=== PATIENT | female | born 1945 | race Caucasian/White ===

== ENCOUNTER → 2018-10-05 | Outpatient (CLI) | payer MEDICARE, OTHER ==
--- NOTE | 2018-10-05 13:57 | Diagnostic Imaging Report ---
Indication: Bilateral knee pain. Time of exam: 1:44 PM Multiple views of bilateral knees were obtained. Alignment is normal. Joint spaces are well maintained. Articular surfaces are smooth. No fracture, dislocation or effusion is seen. There is minimal spurring of the tibial spines. Impression: Mild degenerative changes. No acute bony abnormality is detected. Dictated by: Dictated on workstation # [id number]
== END ==
LOC: RAD FS 13:39
PROVIDERS: ATTEND Family Medicine
DX: M17.0 Bilateral primary osteoarthritis of knee (principal)

== ENCOUNTER 2019-03-07 01:17 | Emergency (ER) | payer MEDICARE, OTHER ==
[~2019-03-07] VITALS: Ht 162.6 cm; Wt 81.6 kg
[2019-03-07] MEDS ORDERED: ASPIRIN 81 MG CHEW (CHILDREN'S ASA) PO ONE (01:30)
[2019-03-07] MEDS: NITROGLYCERIN 0.4 MG SL TABS BTL 25'S SL PRN ×2 (01:47→04:27)
[2019-03-07 01:53] LABS: HEMATOCRIT 42 % (35-52); HEMOGLOBIN 13.9 G/DL (11.5-16.0); MEAN CORPUSCULAR HEMOGLOBIN 31 PG (25-34); MEAN CORPUSCULAR VOLUME 92 FL (80-99); WHITE BLOOD COUNT 10.6 10^3/uL (4.3-11.0)
[2019-03-07 01:54] LABS: BASOPHILS # (AUTO) 0.1 10^3/uL (0.0-0.1); BASOPHILS % (AUTO) 1 % (0-10); EOSINOPHILS # (AUTO) 0.3 10^3/uL (0.0-0.3); EOSINOPHILS % (AUTO) 3 % (0-10); LYMPHOCYTES # (AUTO) 2.3 X 10^3 (1.0-4.0); LYMPHOCYTES % (AUTO) 22 % (12-44); MEAN CORPUSCULAR HGB CONC 33 G/DL (32-36); MEAN PLATELET VOLUME 10.5 FL (7.4-10.4); MONOCYTES # (AUTO) 1.1 X 10^3 (0.0-1.0); MONOCYTES % (AUTO) 10 % (0-12); NEUTROPHILS # (AUTO) 6.8 X 10^3 (1.8-7.8); NEUTROPHILS % (AUTO) 64 % (42-75); PLATELET COUNT 279 10^3/uL (130-400); RED CELL DISTRIBUTION WIDTH 13.2 % (10.0-14.5)
[2019-03-07 02:06] LABS: ALBUMIN 4.5 GM/DL (3.2-4.5); BILIRUBIN,TOTAL 0.3 MG/DL (0.1-1.0); CALCIUM 9.4 MG/DL (8.5-10.1); CREATININE SERUM 0.95 MG/DL (0.60-1.30); MAGNESIUM 2.2 MG/DL (1.6-2.4); POTASSIUM 3.8 MMOL/L (3.6-5.0); TOTAL PROTEIN 7.8 GM/DL (6.4-8.2)
[2019-03-07 02:23] LABS: INR 0.9 (0.8-1.4)
--- NOTE | 2019-03-07 02:26 | ED Chest Pain ---
General Chief Complaint: Chest Pain Stated Complaint: SOB; CHEST PAIN Source: patient Exam Limitations: no limitations (ADA MENDES MD) History of Present Illness Date Seen by Provider: Mar 07, 2019 Time Seen by Provider: 01:21 Initial Comments Here with report of 24 hours of intermittent chest pressure. Started the night before and then better but then through the day yesterday it worsened until early this morning when she presented for evaluation secondary to chest pressure and some shortness of breath. Does have cardiac history with previous heart stents. Significant cardiac history in the family. Denies nausea, vomiting or diaphoresis. 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 NTG SL BIOFUELS MANAGER: No Associated Symptoms: No abdominal pain, No back pain, No diaphoresis, No nausea/vomiting; shortness of breath; No weakness (DAA MENDES MD) Allergies and Home Medications Allergies Coded Allergies: No Known Drug Allergies (Unverified , 03/07/19) Patient Home Medication List Home Medication List Reviewed: Yes (ADA MENDES MD) Review of Systems Review of Systems Constitutional: no symptoms reported EENTM: No Symptoms Reported Respiratory: See HPI, Shortness of Air Cardiovascular: See HPI, Chest Pain Gastrointestinal: Denies Diarrhea, Denies Nausea, Denies Vomiting Genitourinary: No Symptoms Reported Musculoskeletal: no symptoms reported Skin: no symptoms reported Psychiatric/Neurological: No Symptoms Reported Endocrine: No Symptoms Reported Hematologic/Lymphatic: No Symptoms Reported (OMAR LEW MD) Past Suczbbu-Ojsfme-Mgxlbc Hx Past Med/Social Hx: Reviewed Nursing Past Med/Soc Hx (ADA MENDES MD) Past Medical History Surgeries: Yes CABG, Coronary Stent, Oophorectomy, Tonsillectomy Respiratory: No Cardiac: Yes Coronary Artery Disease, High Cholesterol, Hypertension Neurological: No Genitourinary: No Musculoskeletal: No (ADA MENDES MD) Family Medical History Reviewed Nursing Family Hx (ADA MENDES MD) Heart Disease (ADA MENDES MD) Physical Exam Vital Signs Vital Signs - First Documented 03/07/19 01:50 Temp 97.0 Pulse 69 Resp 18 B/P (MAP) 170/64 (99) Pulse Ox 97 O2 Delivery Room Air (OMAR LEW MD) Vital Signs Capillary Refill : (ADA MENDES MD) Height, Weight, BMI Height: '" Weight: lbs. oz. kg; BMI Method: General Appearance: WD/WN, Mild Distress HEENT: PERRL/EOMI, Pharynx Normal Neck: Non Tender, Supple Respiratory: Lungs Clear, Normal Breath Sounds Cardiovascular: Regular Rate, Rhythm, No Murmur Gastrointestinal: Non Tender, Soft Extremity: Normal Range of Motion, Non Tender Neurologic/Psychiatric: Alert, Oriented x3 Skin: Normal Color, Warm/Dry (ADA MENDES MD) Progress/Results/Core Measures Results/Orders Lab Results Laboratory Tests Test 03/07/19 01:27 03/07/19 03:16 Range/Units White Blood Count 10.6 4.3-11.0 10^3/uL Red Blood Count 4.55 4.35-5.85 10^6/uL Hemoglobin 13.9 11.5-16.0 G/DL Hematocrit 42 35-52 % Mean Corpuscular Volume 92 80-99 FL Mean Corpuscular Hemoglobin 31 25-34 PG Mean Corpuscular Hemoglobin Concent 33 32-36 G/DL Red Cell Distribution Width 13.2 10.0-14.5 % Platelet Count 279 130-400 10^3/uL Mean Platelet Volume 10.5 H 7.4-10.4 FL Neutrophils (%) (Auto) 64 42-75 % Lymphocytes (%) (Auto) 22 12-44 % Monocytes (%) (Auto) 10 0-12 % Eosinophils (%) (Auto) 3 0-10 % Basophils (%) (Auto) 1 0-10 % Neutrophils # (Auto) 6.8 1.8-7.8 X 10^3 Lymphocytes # (Auto) 2.3 1.0-4.0 X 10^3 Monocytes # (Auto) 1.1 H 0.0-1.0 X 10^3 Eosinophils # (Auto) 0.3 0.0-0.3 10^3/uL Basophils # (Auto) 0.1 0.0-0.1 10^3/uL Prothrombin Time 13.0 12.2-14.7 SEC INR Comment 0.9 0.8-1.4 Activated Partial Thromboplast Time 29 24-35 SEC Sodium Level 136 135-145 MMOL/L Potassium Level 3.8 3.6-5.0 MMOL/L Chloride Level 97 L 98-107 MMOL/L Carbon Dioxide Level 26 21-32 MMOL/L Anion Gap 13 5-14 MMOL/L Blood Urea Nitrogen 16 7-18 MG/DL Creatinine 0.95 0.60-1.30 MG/DL Estimat Glomerular Filtration Rate 58 BUN/Creatinine Ratio 17 Glucose Level 119 H 70-105 MG/DL Calcium Level 9.4 8.5-10.1 MG/DL Corrected Calcium 9.0 8.5-10.1 MG/DL Magnesium Level 2.2 1.6-2.4 MG/DL Total Bilirubin 0.3 0.1-1.0 MG/DL Aspartate Amino Transf (AST/SGOT) 50 H 5-34 U/L Alanine Aminotransferase (ALT/SGPT) 32 0-55 U/L Alkaline Phosphatase 82 40-136 U/L Myoglobin 46.1 10.0-92.0 NG/ML Troponin I < 0.30 <0.30 NG/ML Total Protein 7.8 6.4-8.2 GM/DL Albumin 4.5 3.2-4.5 GM/DL Pro-B-Type Natriuretic Peptide 3135.0 H <75.0 PG/ML (OMAR LEW MD) Medications Given in ED Current Medications Medications Dose Ordered Sig/Santos Route Start Time Stop Time Status Last Admin Dose Admin Aspirin 324 mg ONCE ONCE PO 03/07/19 01:30 03/07/19 01:31 DC 03/07/19 01:47 324 MG Enoxaparin Sodium 90 mg ONCE ONCE SC 03/07/19 04:30 03/07/19 04:31 DC 03/07/19 04:30 90 MG Nitroglycerin 0.4 mg UD PRN SL 03/07/19 01:30 03/07/19 04:27 0.4 MG Nitroglycerin 1 inch ONCE ONCE TOP 03/07/19 04:00 03/07/19 04:01 DC 03/07/19 04:28 1 INCH (OMAR LEW MD) Vital Signs/I&O 03/07/19 01:50 Temp 97.0 Pulse 69 Resp 18 B/P (MAP) 170/64 (99) Pulse Ox 97 O2 Delivery Room Air (OMAR LEW MD) Progress Progress Note : Progress Note Seen and evaluated. IV, labs, EKG and chest x-ray ordered. ASA 324 mg by mouth ordered. Nitroglycerin sublingual ordered. Monitor patient. Nitroglycerin did seemingly help out her pressure. Chest x-ray did show fairly moderate bilateral vascular congestion. I did discuss with the patient regarding heart failure and she states that she has no history of that. She does have history CABG in 1968 with stenting of the vessels and 2008 and failure of the stent in 2009 requiring repeat CABG. She states that she did have some A. fib during that event but then it cleared up after the CABG. Given her history and the chest x-ray findings I have added BNP. 0400: BNP is grossly elevated. Lasix 40 mg IV and nitro paste 1 inch to chest wall ordered. Her pigs feet finisher is in only there. We have no ICU beds available currently. We will initiate transfer. Her pigs feet finisher is in [place], [place]. 0415: I did discuss the case with Kasey Shea APRN. She accepts patient in transfer for Dr. Brady. We will initiate transfer proceedings when room number is assigned. 0440: Bed number Jung has been given. We are currently working on transfer. Patient is resting peacefully without distress. Blood pressure 123/105 with heart rate 55-62. No chest pain currently. Lovenox 90 mg subcutaneous given. Monitor patient. (ADA MENDES MD) Progress Note : Time: 06:00 Progress Note I assumed care from Dr. MENDES at 6 a.m. I visited with the patient and her . She is symptomatically significantly improved with the IV Lasix and the topical nitroglycerin. Her ventricular response is approximately 60. Supplemental oxygen was applied. We're awaiting EMS transport to [place] at this time. 8:23 am Patient is ready for transfer to [place] with EMS, who should be arriving shortly. (OMAR LEW MD) Initial ECG Impression Date: Mar 07, 2019 Initial ECG Impression Time: 01:32 Initial ECG Rate: 73 Initial ECG Rhythm: Normal Sinus Initial ECG Comparisson: No Previous ECG Available Comment Atrial fibrillation with normal axis. No evidence of ST elevation CA. No previous elbow for comparison. Interpreted by me. (ADA MENDES MD) Diagnostic Imaging Diagonstic Imaging: Xray Plain Films/CT/US/NM/MRI: chest Comments Bilateral pulmonary vascular congestion. (ADA MENDES MD) Departure Impression Primary Impression: Acute heart failure Qualified Codes: I50.9 - Heart failure, unspecified Additional Impression: Atrial fibrillation Qualified Codes: I48.91 - Unspecified atrial fibrillation Disposition: XFER SHT-TRM HOSP Condition: Improved Transfer Time Spoke to Accepting Phy: 04:15 Transfer Facility: [place], [place], Dr. Brady accepting. Method of Transfer: EMS (ADA MENDES MD) Departure-Patient Inst. Referrals: GERSON DOUGHERTY MD (PCP/Family) Primary Care Physician ADA MENDES MD Mar 07, 2019 02:26 OMAR LWE MD Mar 07, 2019 07:01
[2019-03-07] MEDS ORDERED: FUROSEMIDE 40 MG/4 ML INJ (LASIX) IV STA (03:58)
[2019-03-07] MEDS ORDERED: NITROGLYCERIN 2% OINT 1 GM UNIT DOSE PACKET TOP ONE (04:00)
[2019-03-07] MEDS ORDERED: ENOXAPARIN 100 MG/1 ML (LOVENOX) SYR SC ONE (04:30)
--- NOTE | 2019-03-07 04:55 | NUR ---
[facility] EXPECTED TO COME GET PT BETWEEN 0830 AND 0900 TODAY TO TAKE PT TO [facility]
--- NOTE | 2019-03-07 08:46 | Diagnostic Imaging Report ---
INDICATION: Chest pain. Shortness of breath. No focal infiltrates are seen. No effusions. No pneumothorax. Sternotomy wires noted. IMPRESSION: Findings of pulmonary edema. Dictated by: Dictated on workstation # [id number]
[2019-03-07 09:02] VITALS: BP 128/69
== END 2019-03-07 09:02 | disposition short-term general hospital (02) ==
LOC: EDUNIT# 01:17 → ER FS 01:18
DX: I11.0 Hypertensive heart disease with heart failure (principal); I50.9 Heart failure, unspecified; I48.91 Unspecified atrial fibrillation; E78.00 Pure hypercholesterolemia, unspecified; I25.10 Atherosclerotic heart disease of native coronary artery without angina pectoris; Z95.5 Presence of coronary angioplasty implant and graft; Z95.1 Presence of aortocoronary bypass graft; Z90.89 Acquired absence of other organs; Z82.49 Family history of ischemic heart disease and other diseases of the circulatory system
CPT/HCPCS: 36415; 71045; 80053; 83735; 83874; 83880; 84484; 85025; 85610; 85730; 93005; 93041

== ENCOUNTER → 2019-07-19 | Outpatient (CLI) | payer MEDICARE, OTHER ==
--- NOTE | 2019-07-19 15:56 | Diagnostic Imaging Report ---
INDICATION: Bilateral knee pain. TIME OF EXAM: 02:18 p.m. FINDINGS: Multiple views of bilateral knees were obtained. Alignment is normal. Joint spaces are fairly well maintained. The articular surfaces are smooth. No acute fracture, dislocation, or effusion is seen. There is a small corticated osseous density projected between the tibial spines of the left knee on the oblique view measuring 3 mm. A small loose body cannot be entirely excluded. No other significant abnormalities are seen. IMPRESSION: Questionable loose body left knee, as described. No other abnormalities are seen. No acute fracture or dislocation is seen. Dictated by: Dictated on workstation # [id number]
== END ==
LOC: RAD FS 14:12
PROVIDERS: ATTEND Nurse Practitioner
DX: M25.561 Pain in right knee (principal); M25.562 Pain in left knee

== ENCOUNTER 2019-12-11 23:48 | Emergency (ER) | payer MEDICARE, OTHER ==
[~2019-12-11] VITALS: Ht 162 cm; Wt 84.2 kg
--- OUTSIDE RECORDS SUMMARY | 2019-12-11 23:56 | XMS REPORT | Continuity of Care Document ---
Author Organization Unknown Address Unknown Phone Unavailable Allergies Active Description Code Type Severity Reaction Onset Reported/Identified Relationship to Patient Clinical Status Yes No Known Drug Allergies [id number] Drug Allergy Unknown N/A 03/07/2019 Medications There is no data. Problems Date Dx Coded Attending Type Code Diagnosis Diagnosed By 10/08/2018 GERSON DOUGHERTY MD Ot M17.0 BILATERAL PRIMARY OSTEOARTHRITIS OF KNEE 10/30/2018 GERSON DOUGHERTY MD Ot M17.0 BILATERAL PRIMARY OSTEOARTHRITIS OF KNEE 03/07/2019 GERSON DOUGHERTY MD Ot M17.0 BILATERAL PRIMARY OSTEOARTHRITIS OF KNEE 03/07/2019 OMAR LEW MD Ot E78. 00 PURE HYPERCHOLESTEROLEMIA, UNSPECIFIED 03/07/2019 OMAR LEW MD Ot I11. 0 HYPERTENSIVE HEART DISEASE WITH HEART FA 03/07/2019 OMAR LEW MD Ot I25. 10 ATHSCL HEART DISEASE OF [place] CORONARY 03/07/2019 OMAR LEW MD Ot I48. 91 UNSPECIFIED ATRIAL FIBRILLATION 03/07/2019 OMAR LEW MD Ot I50. 9 HEART FAILURE, UNSPECIFIED 03/07/2019 OMAR LEW MD Ot R07. 89 OTHER CHEST PAIN 03/07/2019 OMAR LEW MD Ot Z82. 49 FAMILY HX OF ISCHEM HEART DIS AND OTH DI 03/07/2019 OMAR LEW MD Ot Z90. 89 ACQUIRED ABSENCE OF OTHER ORGANS 03/07/2019 OMAR LEW MD Ot Z95. 1 PRESENCE OF AORTOCORONARY BYPASS GRAFT 03/07/2019 OMAR LEW MD Ot Z95. 5 PRESENCE OF CORONARY ANGIOPLASTY IMPLANT 07/21/2019 LUIS MEDINA Ot M25.561 PAIN IN RIGHT KNEE 07/21/2019 LUIS MEDINA Ot M25.562 PAIN IN LEFT KNEE 07/25/2019 LUIS MEDINA Ot M25.561 PAIN IN RIGHT KNEE 07/25/2019 LUIS MEDINAP Ot M25.562 PAIN IN LEFT KNEE 08/04/2019 LUIS MEDINA Toma ESPINOSA Ot M25.561 PAIN IN RIGHT KNEE 08/04/2019 ADAMLUIS Toma ESPINOSA Ot M25.562 PAIN IN LEFT KNEE Procedures There is no data. Results Test Result Range Complete blood count (CBC) with automate d white blood cell (WBC) differential - 03/07/19 01:27 Blood leukocytes automated count (number/volume) 10.6 10*3/uL 4.3-11.0 Blood erythrocytes automated count (number/volume) 4.55 10*6/uL 4.35-5.85 Venous blood hemoglobin measurement (mass/volume) 13.9 g/dL 11.5-16.0 Blood hematocrit (volume fraction) 42 % 35-52 Automated erythrocyte mean corpuscular volume 92 [ foz_us] 80-99 Automated erythrocyte mean corpuscular h emoglobin (mass per erythrocyte) 31 pg 25-34 Automated erythrocyte mean corpuscular h emoglobin concentration measurement (mass/volume) 33 g/dL 32-36 Automated erythrocyte distribution width ratio 13. 2 % 10.0- 14.5 Automated blood platelet count (count/volume) 279 10*3/uL 130-400 Automated blood platelet mean volume measurement 10.5 [foz_us] 7.4-10.4 Automated blood neutrophils/100 leukocytes 64 % 42-75 Automated blood lymphocytes/100 leukocytes 22 % 12-44 Blood monocytes/100 leukocytes 10 % 0-12 Automated blood eosinophils/100 leukocytes 3 % 0-10 Automated blood basophils/100 leukocytes 1 % 0-10 Blood neutrophils automated count (number/volume) 6.8 10*3 1.8-7.8 Blood lymphocytes automated count (number/volume) 2.3 10*3 1.0-4.0 Blood monocytes automated count (number/volume) 1. 1 10*3 0.0-1.0 Automated eosinophil count 0.3 10*3/uL 0 .0-0.3 Automated blood basophil count (count/volume) 0.1 10*3/uL 0.0-0.1 Serum or plasma troponin i.cardiac measu rement (mass/volume) - 03/07/19 01:27 Serum or plasma troponin i.cardiac measurement (mass/v olume) < ng/mL <0.30 Comprehensive metabolic panel - 03/07/19 01:27 Serum or plasma sodium measurement (moles/volume) 136 mmol/L 135-145 Serum or plasma potassium measurement (moles/volume) 3.8 mmol/L 3.6-5.0 Serum or plasma chloride measurement (moles/volume) 97 mmol/L 98-107 Carbon dioxide 26 mmol/L 21-32 Serum or plasma anion gap determination (moles/volume) 13 mmol/L 5-14 Serum or plasma urea nitrogen measurement (mass/volume ) 16 mg/dL 7-18 Serum or plasma creatinine measurement (mass/volume) 0.95 mg/dL 0.60-1.30 Serum or plasma urea nitrogen/creatinine mass ratio 17 NRG Serum or plasma creatinine measurement w ith calculation of estimated glomerular filtration rate 58 NRG Serum or plasma glucose measurement (mass/volume) 119 mg/dL 70-105 Serum or plasma calcium measurement (mass/volume) 9.4 mg/dL 8.5-10.1 Serum or plasma total bilirubin measurement (mass/volu me) 0.3 mg/dL 0.1-1.0 Serum or plasma alkaline phosphatase katelynn surement (enzymatic activity/volume) 82 U/L 40-136 Serum or plasma aspartate aminotransfera se measurement (enzymatic activity/volume) 50 U/L 5-34 Serum or plasma alanine aminotransferase measurement (enzymatic activity/volume) 32 U/L 0-55 Serum or plasma protein measurement (mass/volume) 7.8 g/dL 6.4-8.2 Serum or plasma albumin measurement (mass/volume) 4.5 g/dL 3.2-4.5 CALCIUM CORRECTED 9.0 mg/dL 8.5-10.1 Magnesium - 03/07/19 01:27 Magnesium 2.2 mg/dL 1.6-2.4 PT panel in platelet poor plasma by coag ulation assay - 03/07/19 01:27 Prothrombin time (PT) in platelet poor plasma by coagu lation assay 13.0 s 12.2-14.7 INR in platelet poor plasma or blood by coagulation as say 0.9 0.8-1.4 Activated partial thromboplastin time (a PTT) in platelet poor plasma bycoagulation assay - 03/07/19 01:27 Activated partial thromboplastin time (a PTT) in platelet poor plasma bycoagulation assay 29 s 24-35 Myoglobin, serum - 03/07/19 01:27 Myoglobin, serum 46.1 ng/mL 10.0-92.0 PROBNP FS - 03/07/19 03:16 PROBNP FS 3135.0 pg/mL <75.0 Encounters ACCT No. Visit Date/Time Discharge Status Pt. Type Provider Facility Loc./Unit Complaint [id number] 07/19/2019 14:12:00 020 23:59:59 CLS Outpatient LUIS MEDINA [facility] RAD FS M25.561 [id number] 03/07/2019 01:18:00 019 09:02:00 DIS Emergency VIPIN FAULKNER, OMAR Mejia [facility] ER FS SOB; CHEST PAIN [id number] 10/05/2018 13:39:00 019 23:59:59 CLS Outpatient LADONNA FAULKNER, GERSON Prado [facility] RAD FS M17.0
[2019-12-12] MEDS ORDERED: TRM50T PO (00:38)
--- NOTE | 2019-12-12 00:38 | ED General ---
General Chief Complaint: Head/Cervical Problems Stated Complaint: FELL AND HIT HEAD Nursing Triage Note: Pt states she lost her balance at home and hit her head on a table. Pt denies loc and is alert and oriented on arrival Nursing Sepsis Screen: No Definite Risk Source of Information: Patient History of Present Illness Date Seen by Provider: Dec 12, 2019 Time Seen by Provider: 00:00 Initial Comments Patient is a 74-year-old female currently owns her also for intermittent A. fib presents with persistent headache for several hours after striking her apical central forehead recommend while attempting to sit down. Denies loss of consciousness, change of mental status, nausea vomiting or worsening headache. Patient reports diffuse upper posterior neck pain. Other pain symptoms or complaints. No other acute symptoms at this time. Timing/Duration: 4-6 Hours Severity: Moderate Associated Systoms: Denies Symptoms Allergies and Home Medications Allergies Coded Allergies: No Known Drug Allergies (Unverified , 03/07/19) Patient Home Medication List Home Medication List Reviewed: Yes Review of Systems Review of Systems Constitutional: see HPI EENTM: see HPI Respiratory: see HPI Cardiovascular: see HPI Genitourinary: see HPI Musculoskeletal: see HPI Skin: see HPI Psychiatric/Neurological: See HPI Hematologic/Lymphatic: See HPI Immunological/Allergic: see HPI All Other Systems Reviewed Negative Unless Noted: Yes Past Jbovjvs-Volobf-Ylsshf Hx Past Med/Social Hx: Reviewed Nursing Past Med/Soc Hx Patient Social History Alcohol Use: Denies Use Recreational Drug Use: No Smoking Status: Never a Smoker 2nd Hand Smoke Exposure: No Recent Foreign Travel: No Contact w/Someone Who Travel: No Recent Infectious Disease Expo: No Recent Hopitalizations: No Physical Abuse: No Sexual Abuse: No Past Medical History Surgeries: Yes CABG, Coronary Stent, Oophorectomy, Tonsillectomy Respiratory: No Cardiac: Yes (CHF) Atrial Fibrillation, Coronary Artery Disease, High Cholesterol, Hypertension Neurological: No Genitourinary: No Gastrointestinal: No Musculoskeletal: No Endocrine: No HEENT: No Cancer: No Psychosocial: No Integumentary: No Blood Disorders: No Family Medical History Heart Disease Physical Exam Vital Signs Vital Signs - First Documented 12/11/19 23:54 Temp 36.6 Pulse 85 Resp 18 B/P (MAP) 159/74 (102) Pulse Ox 99 O2 Delivery Room Air Capillary Refill : Less Than 3 Seconds Height, Weight, BMI Height: 5'4.00" Weight: 180lbs. oz. 81.100849de; 32.00 BMI Method:Stated General Appearance: No Apparent Distress, WD/WN, Anxious Eyes: Bilateral Eye Normal Inspection, Bilateral Eye PERRL, Bilateral Eye EOMI HEENT: PERRL/EOMI, Normal ENT Inspection, Pharynx Normal Neck: Non Tender, Supple, Limited Range of Motion, Other Respiratory: Chest Non Tender, Lungs Clear Cardiovascular: Regular Rate, Rhythm (regular rate), No Edema, Other Gastrointestinal: Soft Back: Normal Inspection Neurologic/Psychiatric: Alert, Oriented x3, No Motor/Sensory Deficits Focused Exam Sepsis Stage: Ruled Out Progress/Results/Core Measures Suspected Sepsis Recent Fever Within 48 Hours: No Infection Criteria Present: None New/Unexplained Altered Menta: No Sepsis Screen: No Definite Risk SIRS Temperature: Pulse: 85 Respiratory Rate: 18 Blood Pressure 159 /74 Mean: 102 Results/Orders My Orders Orders - MARTI SWENSON DO Ct Head/Cervical Spine Wo (12/12/19 00:07) Tramadol Tablet (Ultram Tablet) (12/12/19 00:30) Vital Signs/I&O 12/11/19 23:54 Temp 36.6 Pulse 85 Resp 18 B/P (MAP) 159/74 (102) Pulse Ox 99 O2 Delivery Room Air Capillary Refill : Less Than 3 Seconds Blood Pressure Mean: 102 Departure Communication (Admissions) CT head/cervical spine: Impression Primary Impression: Concussion without loss of consciousness Additional Impression: Acute cervical sprain Disposition: 01 HOME, SELF-CARE Condition: Stable Departure-Patient Inst. Referrals: GERSON DOUGHERTY MD (PCP/Family) Primary Care Physician Patient Instructions: Closed Head Injury, Neck Sprain (DC) Add. Discharge Instructions: You were evaluated in the emergency department for head injury and neck pain. CT imaging head and neck were performed and did not show acute intracranial or cervical spine injury. Please take newly Tylenol for pain and tramadol as needed for additional relief. Follow-up with your PCP in 2-3 days for reevaluation if symptoms persist. All discharge instructions reviewed with patient and/or family. Voiced understanding. Scripts Tramadol HCl (Tramadol HCl) 50 Mg Tablet 50 MG PO Q6H PRN for PAIN for 3 Days, #10 TAB 0 Refills Prov: MARTI SWENSON DO 12/12/19 MARTI SWENSON DO Dec 12, 2019 00:38
[2019-12-12 00:44] VITALS: BP 159/74
--- NOTE | 2019-12-12 07:30 | Diagnostic Imaging Report ---
Clinical indication: Patient lost her balance at home and hit her head on the table. Patient denies loss of consciousness. Exam: Head CT without IV contrast with coronal and sagittal reformatted images. Axial CT scan of the cervical spine with sagittal and coronal reformations. Auto Exposure Controls were utilized during the CT exam to meet ALARA standards for radiation dose reduction. Comparison: None. Findings: Head CT: There is no evidence of acute cerebral infarct, intracranial hemorrhage, or gross mass effect. There is diffuse brain parenchymal volume loss. There are subtle patchy areas of low-attenuation white matter changes involving both cerebral hemispheres, likely representing chronic small vessel ischemic disease. There is normal garland-white matter distinction. There is no significant midline shift or herniation. There is no evidence of hydrocephalus. The basal cisterns are unremarkable. The skull, extracranial soft tissue, and orbits are unremarkable. The paranasal sinuses are unremarkable. Temporal bones show no significant abnormality. Cervical spine: There is no acute cervical spine fracture. There is grade 1 anterolisthesis C2 on C3 and C3 on C4 and C4 on C5 with no pars defects seen, and is likely degenerative. There are hypertrophic spurs and facet arthropathy seen throughout cervical spine. There is uncinate spurs and diffuse disk bulges seen at C5-C6 and C6-C7 levels. There is moderate to severe right C5-C6 neural foramen narrowing and moderate left C5-C6 and C6-C7 neural foramen narrowing. There is at least mild to moderate central canal narrowing at the C5-C6 and C6-C7 levels. There is no significant neck soft tissue abnormality. Visualized upper lung abdi show no significant abnormality. Impression: 1: There is no evidence of acute intracranial process. There is no skull fracture. 2: Multilevel cervical spine degenerative disease with no acute fracture. I agree with [employer] report. Dictated by: Dictated on workstation # [id number]
== END 2019-12-12 00:45 | disposition home or self-care (01) ==
LOC: EDUNIT# 23:48 → ER FS 23:52
DX: S06.0X0A Concussion without loss of consciousness, initial encounter (principal); S13.4XXA Sprain of ligaments of cervical spine, initial encounter; I11.0 Hypertensive heart disease with heart failure; I50.9 Heart failure, unspecified; Z95.1 Presence of aortocoronary bypass graft; Z95.5 Presence of coronary angioplasty implant and graft; Z82.49 Family history of ischemic heart disease and other diseases of the circulatory system; W19.XXXA Unspecified fall, initial encounter; W22.8XXA Striking against or struck by other objects, initial encounter; Y92.009 Unspecified place in unspecified non-institutional (private) residence as the place of occurrence of the external cause
CPT/HCPCS: 70450; 72125

== ENCOUNTER 2020-11-08 12:16 | Emergency (ER) | payer MEDICARE, OTHER ==
[~2020-11-08] VITALS: Ht 162.6 cm; Wt 78.0 kg
[~2020-11-08 12:16] MED LIST: TRM50T PO
--- NOTE | 2020-11-08 12:33 | ED Cardiac General ---
History of Present Illness General Chief Complaint: Chest Pain Stated Complaint: SOB; CHEST PAIN History of Present Illness Date Seen by Provider: November 08, 2020 Time Seen by Provider: 12:25 Initial Comments 74-year-old female presents with chest pressure and shortness of air for the past 3 days, intermittently but getting progressively worse today. History of CHF and she takes Lasix once a day, not on home oxygen. Denies any recent illness, fever chills or cough. Denies any swelling of extremities. Allergies and Home Medications Allergies Coded Allergies: No Known Drug Allergies (Unverified , 03/07/19) Home Medications Tramadol HCl 50 Mg Tablet, 50 MG PO Q6H PRN for PAIN Prescribed by: MARTI SWENSON on 12/12/19 0038 Patient Home Medication List Home Medication List Reviewed: Yes Review of Systems Review of Systems Constitutional: No chills, No fever, No malaise, No weakness EENTM: No Symptoms Reported Respiratory: See HPI; Denies Cough; Shortness of Air; Denies Stridor, Denies Wheezing Cardiovascular: See HPI, Chest Pain; Denies Edema, Denies Palpitations, Denies Syncope Gastrointestinal: Denies Abdominal Pain, Denies Nausea, Denies Vomiting Musculoskeletal: No back pain, No joint pain Skin: No change in color, No lesions, No rash Past Plqyemf-Ykqshg-Jabldr Hx Past Med/Social Hx: Reviewed Nursing Past Med/Soc Hx Patient Social History 2nd Hand Smoke Exposure: No Recent Hopitalizations: No Past Medical History Surgeries: Yes CABG, Coronary Stent, Oophorectomy, Tonsillectomy Respiratory: No Cardiac: Yes (CHF) Atrial Fibrillation, Coronary Artery Disease, High Cholesterol, Hypertension Neurological: No Genitourinary: No Gastrointestinal: No Musculoskeletal: No Endocrine: No HEENT: No Cancer: No Psychosocial: No Integumentary: No Blood Disorders: No Family Medical History Heart Disease Physical Exam Vital Signs Vital Signs - First Documented Capillary Refill : Height, Weight, BMI Height: 5'4.00" Weight: 180lbs. oz. [id number]; 32.00 BMI Method:Stated General Appearance: No Apparent Distress, WD/WN Neck: Non Tender, Supple Respiratory: Chest Non Tender, Lungs Clear, Normal Breath Sounds, No Accessory Muscle Use, No Respiratory Distress Cardiovascular: Regular Rate, Rhythm, No Edema, No JVD Gastrointestinal: No Organomegaly, Non Tender, Soft Extremity: Normal Inspection, Non Tender, No Pedal Edema Progress/Results/Core Measures Results/Orders Lab Results Laboratory Tests Test 11/08/20 12:18 Range/Units White Blood Count 9.2 4.3-11.0 10^3/uL Red Blood Count 4.98 4.35-5.85 10^6/uL Hemoglobin 15.4 11.5-16.0 G/DL Hematocrit 46 35-52 % Mean Corpuscular Volume 92 80-99 FL Mean Corpuscular Hemoglobin 31 25-34 PG Mean Corpuscular Hemoglobin Concent 34 32-36 G/DL Red Cell Distribution Width 13.2 10.0-14.5 % Platelet Count 333 130-400 10^3/uL Mean Platelet Volume 10.2 7.4-10.4 FL Immature Granulocyte % (Auto) 0 % Neutrophils (%) (Auto) 59 42-75 % Lymphocytes (%) (Auto) 26 12-44 % Monocytes (%) (Auto) 12 0-12 % Eosinophils (%) (Auto) 2 0-10 % Basophils (%) (Auto) 1 0-10 % Neutrophils # (Auto) 5.5 1.8-7.8 X 10^3 Lymphocytes # (Auto) 2.4 1.0-4.0 X 10^3 Monocytes # (Auto) 1.1 H 0.0-1.0 X 10^3 Eosinophils # (Auto) 0.2 0.0-0.3 10^3/uL Basophils # (Auto) 0.1 0.0-0.1 10^3/uL Immature Granulocyte # (Auto) 0.0 0.0-0.1 10^3/uL D-Dimer < 0.27 0.00-0.49 UG/ML Sodium Level 139 135-145 MMOL/L Potassium Level 4.2 3.6-5.0 MMOL/L Chloride Level 104 98-107 MMOL/L Carbon Dioxide Level 26 21-32 MMOL/L Anion Gap 9 5-14 MMOL/L Blood Urea Nitrogen 14 7-18 MG/DL Creatinine 0.88 0.60-1.30 MG/DL Estimat Glomerular Filtration Rate > 60 BUN/Creatinine Ratio 16 Glucose Level 121 H 70-105 MG/DL Calcium Level 9.8 8.5-10.1 MG/DL Corrected Calcium 8.5-10.1 MG/DL Total Bilirubin 0.6 0.1-1.0 MG/DL Aspartate Amino Transf (AST/SGOT) 28 5-34 U/L Alanine Aminotransferase (ALT/SGPT) 18 0-55 U/L Alkaline Phosphatase 75 40-136 U/L Troponin I < 0.30 <0.30 NG/ML Pro-B-Type Natriuretic Peptide 2944.0 H <75.0 PG/ML Total Protein 8.0 6.4-8.2 GM/DL Albumin 4.6 H 3.2-4.5 GM/DL My Orders Orders - [place] Ed Iv/Invasive Line Start (11/08/20 12:33) Cbc With Automated Diff (11/08/20 12:33) Comprehensive Metabolic Panel (11/08/20 12:33) Troponin I Fs (11/08/20 12:33) Chest 1 View Ap/Pa Only (11/08/20 12:33) Probnp Fs (11/08/20 12:33) Fibrin Degradation Products (11/08/20 12:33) Ekg Tracing (11/08/20 12:35) Vital Signs/I&O 11/08/20 11/08/20 12:16 12:16 Temp 37.1 Pulse 89 Resp 20 B/P (MAP) 140/92 (108) Pulse Ox 99 O2 Delivery Room Air Room Air Initial ECG Impression Date: November 08, 2020 Initial ECG Impression Time: 12:20 Initial ECG Rate: 86 Initial ECG Rhythm: Normal Sinus Initial ECG Comparisson: No Previous ECG Available Comment no acute ischemic change. Old ischemia...inf q waves Diagnostic Imaging Comments Date of Exam:11/08/20 CHEST 1 VIEW AP/PA ONLY PATIENT HISTORY: SOA. TECHNIQUE: Single frontal view of the chest. COMPARISON: 03/07/2019 FINDINGS: The lung volumes are normal. No focal consolidation is seen. No large pleural effusion or pneumothorax is seen. There is mild cardiomegaly which appears stable. Sternotomy wires and post-CABG changes are noted. IMPRESSION: Stable cardiomegaly with no acute pulmonary abnormality seen. Dictated on workstation # [id number] Dict: 11/08/20 1244 Trans: 11/08/20 1247 [facility] [id number] Interpreted by: HOMER BARLOW MD Electronically signed by: Departure Impression Primary Impression: Chest pain Qualified Codes: R07.9 - Chest pain, unspecified Additional Impression: Anxiety Disposition: HOME, SELF-CARE Condition: Improved Departure-Patient Inst. Decision time for Depature: 14:12 Referrals: GERSON DOUGHERTY MD (PCP/Family) Primary Care Physician Patient Instructions: Chest Pain, Adult ED Scripts Clonazepam (Klonopin) 0.5 Mg Tablet 0.5 MG PO DAILY PRN for Anxiety, #10 TAB Prov: VIRGINIA CASTRO DO 11/08/20 VIRGINIA CASTRO DO November 08, 2020 12:33
[2020-11-08 12:43] LABS: HEMATOCRIT 46 % (35-52); HEMOGLOBIN 15.4 G/DL (11.5-16.0); MEAN CORPUSCULAR HEMOGLOBIN 31 PG (25-34); MEAN CORPUSCULAR HGB CONC 34 G/DL (32-36); MEAN CORPUSCULAR VOLUME 92 FL (80-99); WHITE BLOOD COUNT 9.2 10^3/uL (4.3-11.0)
[2020-11-08 12:44] LABS: BASOPHILS # (AUTO) 0.1 10^3/uL (0.0-0.1); BASOPHILS % (AUTO) 1 % (0-10); EOSINOPHILS # (AUTO) 0.2 10^3/uL (0.0-0.3); EOSINOPHILS % (AUTO) 2 % (0-10); LYMPHOCYTES # (AUTO) 2.4 X 10^3 (1.0-4.0); LYMPHOCYTES % (AUTO) 26 % (12-44); MEAN PLATELET VOLUME 10.2 FL (7.4-10.4); MONOCYTES # (AUTO) 1.1 X 10^3 (0.0-1.0); MONOCYTES % (AUTO) 12 % (0-12); NEUTROPHILS # (AUTO) 5.5 X 10^3 (1.8-7.8); NEUTROPHILS % (AUTO) 59 % (42-75); PLATELET COUNT 333 10^3/uL (130-400)
--- NOTE | 2020-11-08 12:48 | Diagnostic Imaging Report ---
PATIENT HISTORY: SOA. TECHNIQUE: Single frontal view of the chest. COMPARISON: 03/07/2019 FINDINGS: The lung volumes are normal. No focal consolidation is seen. No large pleural effusion or pneumothorax is seen. There is mild cardiomegaly which appears stable. Sternotomy wires and post-CABG changes are noted. IMPRESSION: Stable cardiomegaly with no acute pulmonary abnormality seen. Dictated by: Dictated on workstation # [id number]
[2020-11-08 13:13] LABS: ALKALINE PHOSPHATASE 75 U/L (40-136); BILIRUBIN,TOTAL 0.6 MG/DL (0.1-1.0); BUN/CREATININE RATIO 16; CALCIUM 9.8 MG/DL (8.5-10.1); CARBON DIOXIDE 26 MMOL/L (21-32); CHLORIDE 104 MMOL/L (98-107); CREATININE SERUM 0.88 MG/DL (0.60-1.30); GFR ESTIMATED > 60; GLUCOSE 121 MG/DL (70-105); POTASSIUM 4.2 MMOL/L (3.6-5.0); SODIUM 139 MMOL/L (135-145)
[2020-11-08 13:14] LABS: ALANINE AMINOTRANSFERASE 18 U/L (0-55); ALBUMIN 4.6 GM/DL (3.2-4.5)
[2020-11-08] MEDS ORDERED: CLON0.5T PO (14:13)
[2020-11-08 14:30] VITALS: BP 118/76
== END 2020-11-08 14:30 | disposition home or self-care (01) ==
LOC: EDUNIT# 12:16 → ER FS 12:17
DX: R07.9 Chest pain, unspecified (principal); F41.9 Anxiety disorder, unspecified; I11.0 Hypertensive heart disease with heart failure; I50.9 Heart failure, unspecified
CPT/HCPCS: 36415; 71045; 80053; 83880; 84484; 85025; 85379; 93005

== ENCOUNTER 2022-07-21 15:20 | Emergency (ER) | payer MEDICARE, OTHER ==
[~2022-07-21] VITALS: Ht 162 cm; Wt 77.0 kg
[~2022-07-21 15:20] MED LIST changes: +CLON0.5T PO
[2022-07-21 15:36] VITALS: BP 139/63
--- NOTE | 2022-07-21 15:43 | ED General ---
General Chief Complaint: General Problems/Pain Stated Complaint: INCISION PAIN, LARGE KNOT IN ABD Source of Information: Patient Exam Limitations: No Limitations History of Present Illness Date Seen by Provider: Jul 21, 2022 Time Seen by Provider: 15:27 Initial Comments 76-year-old female patient states she had right femoral artery cleaning surgery 5 days ago at [facility] and since yesterday has had increasing pain and feeling a knot on the area of surgery. Patient denies wound drainage, fever and chills, nausea and vomiting, abdominal pain, diarrhea and constipation, urin carson symptoms, cough and congestion and shortness of breath. Patient takes hydrocodone as needed for pain prescribed by the surgeon. Patient states she took a couple of leftover antibiotic given by dentist for her tooth infection without improvement of her condition. Allergies and Home Medications Allergies Coded Allergies: No Known Drug Allergies (Unverified , 03/07/19) Patient Home Medication List Home Medication List Reviewed: Yes Clonazepam (Klonopin) 0.5 Mg Tablet, 0.5 MG PO DAILY PRN Prescribed by: VIRGINIA CASTRO on 11/08/20 1413 Tramadol HCl (Tramadol HCl) 50 Mg Tablet, 50 MG PO Q6H PRN for PAIN Prescribed by: MARTI SWENSON on 12/12/19 0038 Review of Systems Review of Systems Constitutional: see HPI EENTM: see HPI Respiratory: see HPI Cardiovascular: see HPI Gastrointestinal: see HPI Genitourinary: see HPI Musculoskeletal: see HPI Skin: see HPI Psychiatric/Neurological: See HPI Hematologic/Lymphatic: See HPI Immunological/Allergic: see HPI All Other Systems Reviewed Negative Unless Noted: Yes Past Ktnyclb-Bgjttg-Xijhfy Hx Patient Social History Tobacco Use?: No Substance use?: No Alcohol Use?: Yes Alcohol type: Beer Alcohol Frequency: Once in a while Seasonal Allergies Seasonal Allergies: No Past Medical History Surgeries: Yes CABG, Coronary Stent, Oophorectomy, Tonsillectomy Respiratory: No Cardiac: Yes (CHF) Atrial Fibrillation, Coronary Artery Disease, High Cholesterol, Hypertension Neurological: No Genitourinary: No Gastrointestinal: No Musculoskeletal: No Endocrine: No HEENT: No Cancer: No Psychosocial: No Integumentary: No Blood Disorders: No Family Medical History Heart Disease Physical Exam Vital Signs Vital Signs - First Documented 07/21/22 15:36 Temp 37.1 Pulse 68 Resp 20 B/P (MAP) 139/63 (88) Pulse Ox 100 O2 Delivery Room Air Capillary Refill : Height, Weight, BMI Height: 5'4.00" Weight: 180lbs. oz. 81.821593pj; 29.00 BMI Method:Stated General Appearance: No Apparent Distress, WD/WN HEENT: PERRL/EOMI Neck: Full Range of Motion Respiratory: Chest Non Tender, Lungs Clear, Normal Breath Sounds, No Accessory Muscle Use, No Respiratory Distress Cardiovascular: Regular Rate, Rhythm, No Edema, No Gallop Gastrointestinal: Normal Bowel Sounds, No Organomegaly, No Pulsatile Mass, Other (Right inguinal area with post op ecchymosis and clean surgical wound with mild) Back: Normal Inspection Extremity: Normal Capillary Refill, Normal Inspection Neurologic/Psychiatric: Alert, Oriented x3 Progress/Results/Core Measures Suspected Sepsis SIRS Temperature: Pulse: Respiratory Rate: Blood Pressure / Mean: Results/Orders Vital Signs/I&O 07/21/22 15:36 Temp 37.1 Pulse 68 Resp 20 B/P (MAP) 139/63 (88) Pulse Ox 100 O2 Delivery Room Air Capillary Refill : Progress Note : Progress Note 76-year-old female patient with 5 days post of inguinal procedure for draining femoral vein with complaining of increasing pain and hardness of the area. Patient had a stable vital sign and marked erythema of surgical wound matching with postop change without fluctuation or signs of infection with good peripheral pulses. Patient advised to stop taking leftover antibiotic that she took 2 doses of them and just continue home pain medication as needed and follow-up with surgeon or return to ER as needed. Departure Impression Primary Impression: Post-operative state Additional Impression: Post-operative pain Disposition: 01 HOME, SELF-CARE Condition: Stable Departure-Patient Inst. Decision time for Depature: 15:42 Referrals: GERSON DOUGHERTY MD (PCP/Family) Primary Care Physician Patient Instructions: Postoperative Pain (DC) Add. Discharge Instructions: Continue current medication Keep wound clean and dry Follow-up with your surgeon or return to ER as needed All discharge instructions reviewed with patient and/or family. Voiced understanding. ARTURO BERKOWITZ MD Jul 21, 2022 15:42
== END 2022-07-21 15:45 | disposition home or self-care (01) ==
LOC: EDUNIT# 15:20 → ER FS 15:21
DX: G89.18 Other acute postprocedural pain (principal); R10.31 Right lower quadrant pain; Z28.310 Unvaccinated for COVID-19
CPT/HCPCS: 99281